=== PATIENT | male | born 1995 | race Caucasian/White ===

== ENCOUNTER 2023-02-11 09:11 | Emergency (ER) | payer BC ==
[~2023-02-11] VITALS: Ht 170.2 cm; Wt 77.6 kg
[2023-02-11 09:13] VITALS: BP 107/84; PULSE 67; RESP 18
[2023-02-11] MEDS ORDERED: PREDNISONE 20 MG TABLET PO ONE (10:00)
[2023-02-11] MEDS ORDERED: FAMOTIDINE 20MG TAB PO ONE (10:00)
[2023-02-11] MEDS ORDERED: KETOROLAC 30MG VIAL (30MG/ML) IM ONE (10:00)
[2023-02-11] MEDS ORDERED: CYCLOBENZAPRINE HCL 10 MG TABLET PO ONE (10:00)
[2023-02-11] MEDS ORDERED: NAPR-1180 PO (10:03)
[2023-02-11] MEDS ORDERED: CYCL-309 PO (10:03)
[2023-02-11] MEDS ORDERED: PRED10TA23 PO (10:03)
[2023-02-11] MEDS ORDERED: METH4TAB3 PO (14:46)
== END 2023-02-11 10:52 | disposition home or self-care (01) ==
LOC: EDH 09:11
DX: M54.50 Low back pain, unspecified (principal)
CPT/HCPCS: 99284; 96372; J1885